=== PATIENT | female | born 1990 | race African-American/Black ===

== ENCOUNTER 2017-09-23 20:04 | Emergency (ER) | payer OTHER ==
[~2017-09-23] VITALS: Ht 170.2 cm; Wt 139.7 kg
[2017-09-23 20:27] LABS: URINE BILIRUBIN NEGATIVE (Negative); URINE BLOOD 3+ (Negative); URINE COLOR YELLOW; URINE GLUCOSE-RANDOM* NEGATIVE (Negative); URINE KETONES NEGATIVE (Negative); URINE LEUKOCYTES-REFLEX 2+ (Negative); URINE NITRITE-REFLEX NEGATIVE (Negative); URINE PROTEIN (DIPSTICK) NEGATIVE (Negative)
[2017-09-23 20:28] LABS: URINE CLARITY SL HAZY
[2017-09-23 20:31] LABS: SQUAMOUS 4-10 Moderate /LPF (0-3)
[2017-09-23 20:32] LABS: MUCUS 4-6 Moderate strn/LPF (None Seen); URINE RBC 3-10 Few /HPF (0-2); URINE WBC-REFLEX 6-15 Few /HPF (0-5)
[2017-09-23 20:33] LABS: CASTS None Seen /LPF (None Seen); CRYSTALS None Seen /LPF (None Seen)
[2017-09-23] MEDS ORDERED: KEFLEX500 M1 PO (21:54)
[2017-09-23] MEDS ORDERED: MOBIC15 MG PO (21:54)
[2017-09-23 21:59] VITALS: BP 132/64
[2017-09-26 15:10] LABS: NEISSERIA GONORRHEA-PCR Positive (Negative)
== END 2017-09-23 22:00 | disposition home or self-care (01) ==
LOC: ER 20:04
PROVIDERS: Physician Assistant
DX: N39.0 Urinary tract infection, site not specified (principal)